=== PATIENT | male | born 1975 | race Hispanic/Latino ===

== ENCOUNTER 2018-06-27 18:35 | Emergency (ER) | payer SELFPAY ==
[~2018-06-27 18:35] MED LIST: ISOVUE-370 76%-LOCM 1 ML ONE
[2018-06-27 18:56] LABS: #Basophils 0.1 thou/uL (0.0-0.2); #Eosinphils 0.1 thou/uL (0.0-0.7); #Lymphocytes 2.8 thou/uL (1.20-3.40); #Monocytes 0.5 thou/uL (0.11-0.59); #Neutrophils 3.6 thou/uL (1.40-6.50); %Eosinophils 1.9 % (0.0-10.0); %Monocytes 6.8 % (0.0-10.0); %Neutrophils 50.3 % (42.0-75.0); Hemoglobin 14.8 g/dL (14.0-18.0); Mean Corpuscular HGB CONC 34.8 g/dL (32.0-36.0); Mean Corpuscular Hemoglobin 32.3 pg (27.0-31.0); Mean Corpuscular Volume 92.7 fL (78.0-98.0); Mean Platelet Volume 9.1 fL (7.4-10.4); Platelet Count 207 thou/uL (130-400); RBC Distribution Width 11.5 % (11.5-14.5); Red Blood Cell (RBC) Count 4.57 mill/uL (4.70-6.10); White Blood Cell (WBC) Count 7.1 thou/uL (4.8-10.8)
[2018-06-27] MEDS ORDERED: Ketorolac Tromethamine 30 MG/ML VIAL ONE (19:10)
[2018-06-27 19:17] LABS: ALT (SGPT) 24 U/L (8-55); AST (SGOT) 26 U/L (5-34); Albumin 4.7 g/dL (3.5-5.0); Alkaline Phosphatase 56 U/L (40-150); Anion Gap 15 mmol/L (10-20); BUN (Urea Nitrogen) 13 mg/dL (8.9-20.6); Bilirubin, Total 0.4 mg/dL (0.2-1.2); Calc. Creatinine Clearance 0 mL/min (70-130); Calcium 9.7 mg/dL (7.8-10.44); Carbon Dioxide 26 mmol/L (22-29); Chloride 103 mmol/L (98-107); Estimated GFR-MDRD 75; Globulin 2.7 g/dL (2.4-3.5); Glucose 98 mg/dL (70-105); Potassium 3.8 mmol/L (3.5-5.1); Protein, Total 7.4 g/dL (6.0-8.3); Sodium 140 mmol/L (136-145)
[2018-06-27 19:57] LABS: Bilirubin Negative (Negative); Blood, Urine Negative (Negative); Clarity CLEAR (Clear); Glucose, Urine (Dipstick) Negative (Negative); Leukocyte Negative (Negative); Nitrite Negative (Negative); Protein, Urine (Dipstick) Negative (Neg-Trace); Specific Gravity, Urine 1.017 (1.002-1.036); Urobilinogen 0.2 mg/dL (0.2-1.0)
--- NOTE | 2018-06-27 20:17 | RAD ---
PORTABLE UPRIGHT FRONTAL CHEST RADIOGRAPH: Date: 06-27-18 Comparison: None. History: Injury, trauma, pain. FINDINGS: Supine imaging of the chest provided, limiting assessment for pneumothorax and pleural fluid. Heart a nd mediastinal contours are grossly unremarkable. No focal consolidation or alveolar edema. IMPRESSION: No acute findings. POS: [facility]
--- NOTE | 2018-06-27 21:12 | CT ---
CERVICAL SPINE CT SCAN WITHOUT IV CONTRAST: History: Cervical injury following trauma, hit by horse. FINDINGS/IMPRESSION: Mild disc osteophytosis changes. No fracture or dislocation or other acute process. Findings of slight bending deformity of the left fifth anterior rib as well as a possible nondisplace d fracture of the right L1 transverse process were discussed with Dr. Mcgarry by phone at 7:30 p.m. Code CR POS: [facility]
--- NOTE | 2018-06-27 21:27 | CT ---
HEAD CT WITHOUT IV CONTRAST: History: 43-year-old male with history of level II trauma, chest injury following trauma. Hit by a horse. FINDINGS: There is no evidence for a focal mass or midline shift. No intra or extraaxial hemorrhage. Sinuses an d mastoids are clear of acute process. IMPRESSION: No acute intracranial process. No mass or bleed. POS: [facility]
--- NOTE | 2018-06-27 21:36 | CT ---
CHEST, ABDOMEN, AND PELVIC CT SCAN WITH IV CONTRAST THORACIC SPINE CT SCAN WITH IV CONTRAST LIMITED LUMBAR SPINE CT SCAN WITH IV CONTRAST LIMITED: History: Chest injury following trauma. Hit in chest by horse. FINDINGS: There is no pneumothorax or pleural effusion. No mediastinal hematoma. The aorta appears unremarkable . There is some very slight bending of the left fifth anterior rib which could represent a greenstick type fracture. No pneumothorax or pleural effusion. No pericardial effusion. In the abdomen the liver, gallbladder, pancreas, spleen, adrenal glands and kidneys are unremarkable. No free intraperitoneal fluid or evidence of retroperitoneal hematoma. IMPRESSION: Slight bending deformity of the left anterior fifth read which could possibly represent a nondisplace d greenstick fracture. No evidence for other significant acute post-traumatic process in the chest, a bdomen, or pelvis. THORACIC SPINE CT WITH IV CONTRAST LIMITED: IMPRESSION: No fracture, dislocation, or other significant acute osseous abnormality. LUMBAR SPINE CT WITH IV CONTRAST LIMITED: FINDINGS: There is some irregularity of the transverse process on the right side of L1. This could represent a nondisplaced fracture. No other right sided transverse process fractures are seen. Otherwise, the lum bar spine is unremarkable. No evidence for lumbar vertebral body fracture. IMPRESSION: Possible nondisplaced right L1 transverse process fracture. POS: [facility]
== END 2018-06-27 20:23 | disposition home or self-care (01) ==
LOC: ERS 18:35
DX: S20.219A Contusion of unspecified front wall of thorax, initial encounter (principal); V80.010A Animal-rider injured by fall from or being thrown from horse in noncollision accident, initial encounter
CPT/HCPCS: 36415; 70450; 71045; 71260; 72125; 74177; 80053; 81003; 83605; 85025; 93005; 96361; 96374; G0390; J1885